=== PATIENT | male | born 1995 | race American Indian/Alaskan Native ===

== ENCOUNTER 2020-06-29 10:31 | Emergency (ER) | payer SELFPAY ==
[2020-06-29 10:43] VITALS: BP 145/73
--- NOTE | 2020-06-29 10:59 | Emergency Department Report ---
Chief Complaint: Urogenital-Male Stated Complaint: POSS STD Time Seen by Provider: 06/29/20 10:53 - HPI History of Present Illness: 25-year-old -[place] male patient presents with complaints of burning urination and penile discharge x2 days. He reports recent unprotected sexual intercourse. He denies any fever/chills/sweats, testicular pain/swelling, penile lesions/swelling, painful/swollen joints, hematuria, or abdominal pain. Patient also denies any past medical history - Exam Vital Signs: Vital Signs 06/29/20 10:35 Temperature 98.0 F Pulse Rate 63 Respiratory 16 Rate Blood Pressure 145/73 O2 Sat by Pulse 97 Oximetry MSE screening note: Focused history and physical exam performed. Due to findings the following was ordered: ED Medical Decision Making - Medical Decision Making 25-year-old -[place] male patient presents with complaints of burning urination and penile discharge x2 days. He reports recent unprotected sexual intercourse. He denies any fever/chills/sweats, testicular pain/swelling, penile lesions/swelling, painful/swollen joints, hematuria, or abdominal pain. Patient also denies any past medical history Physical exam is normal. He denies any red flag symptoms. Recommend outpatient assessment and treatment for STIs. Patient provided with primary care referral, health department information, and free clinic list. His vitals are normal, he is well-appearing, and he is stable for discharge home. Strict return precautions were discussed in detail with patient who verbalized understanding. ED Disposition for MSE Clinical Impression: Penile discharge Disposition: DC-01 TO HOME OR SELFCARE Is pt being admited?: No Condition: Stable Instructions: Sexually Transmitted Diseases (ED) Referrals: KORINA MCCABE MD [Staff Physician] - 2-3 Days ED Physical Exam - General Limitations: No Limitations General appearance: alert, in no apparent distress - Head Head exam: Present: atraumatic, normocephalic - Eye Eye exam: Present: normal appearance. Absent: scleral icterus - Neck Neck exam: Present: normal inspection - Respiratory Respiratory exam: Present: normal lung sounds bilaterally. Absent: respiratory distress - Cardiovascular Cardiovascular Exam: Present: regular rate, normal rhythm. Absent: systolic murmur, diastolic murmur, rubs, gallop - GI/Abdominal GI/Abdominal exam: Present: soft, normal bowel sounds. Absent: distended, tenderness, guarding, rebound, rigid - Rectal Rectal exam: Present: deferred - Extremities Exam Extremities exam: Present: normal inspection, full ROM. Absent: tenderness, joint swelling - Back Exam Back exam: Present: normal inspection - Neurological Exam Neurological exam: Present: alert, oriented X3, normal gait - Psychiatric Psychiatric exam: Present: normal affect, normal mood - Skin Skin exam: Present: warm, dry, intact, normal color. Absent: rash, cyanosis, diaphoretic, erythema ED Review of Systems ROS: Stated complaint: POSS STD Other details as noted in HPI Constitutional: denies: chills, diaphoresis, fever, malaise, weakness Gastrointestinal: denies: abdominal pain, nausea, vomiting Genitourinary: dysuria, discharge. denies: frequency, hematuria, testicular pain, testicular mass Musculoskeletal: denies: joint swelling, arthralgia
== END 2020-06-29 11:35 | disposition home or self-care (01) ==
LOC: ED 10:31
DX: R36.9 Urethral discharge, unspecified (principal)
CPT/HCPCS: 99281